=== PATIENT | female | born 1950 | race Caucasian/White ===

== ENCOUNTER → 2018-12-14 06:29 | Outpatient (CLI) | payer MEDICARE, SELFPAY ==
--- NOTE | 2018-12-14 | DI.MRI.S_ITS ---
PROCEDURE: MR SHOULDER LT WO CON INDICATIONS: OSTEOARTHRITIS OF LEFT SHOULDER TECHNIQUE: Noncontrast oblique coronal T2 fast spin echo with fat saturation, oblique sagittal T1 spin echo and T2 fast spin echo with fat saturation, axial T1 spin echo and T2 fast spin echo with fat saturation through the shoulder. COMPARISON: None. FINDINGS: Image quality: Excellent. Rotator cuff: Supraspinatus tendinopathy with partial-thickness bursal and articular sided tear. Infraspinatus tendinopathy also noted, with low-grade bursal and articular surface fraying. Teres minor intact. Subscapularis tendinopathy and thickening, with partial-thickness articular and bursal sided tear. Overall, no definite full-thickness defect is seen. Atrophy of the supraspinatus, infraspinatus and subscapularis muscle. Bones and bursae: No bone marrow contusions or fractures. There is severe glenohumeral and moderate acromioclavicular joint degeneration. The acromion demonstrates conventional anatomy, without an os acromiale. Large joint effusion. Sub-5 mm foci of presumed debris, small intra-articular loose bodies and/or reactive synovitis Capsule and soft tissues: Ill-defined circumferential macerated appearance of the labrum with marked blunting and diminutive appearance, likely chronic in nature. The long head of the biceps tendon demonstrates normal location and morphology. The rotator interval appears normal, without fibrosis. The coracohumeral ligament is normal in thickness. IMPRESSION: Supraspinatus, subscapularis and infraspinatus tendinopathy with partial-thickness bursal and articular sided tear. No definite full-thickness defect is seen. Respective muscle atrophy as above. Severe degenerative joint disease, with deformity and bulky osteophyte formation. Large joint effusion. Scattered multiple sub-5 mm foci of debris, intra-articular loose bodies and/or reactive synovitis Circumferential labral degeneration Dictated by: Blake Lundy M.D. on 12/14/2018 at 8:21 Approved by: Blake Lundy M.D. on 12/14/2018 at 8:30
== END ==
PROVIDERS: PCP Internal Medicine; Visit Provider Internal Medicine
DX: M19.012 Primary osteoarthritis, left shoulder (principal); M75.112 Incomplete rotator cuff tear or rupture of left shoulder, not specified as traumatic; M25.412 Effusion, left shoulder
CPT/HCPCS: 73221

== ENCOUNTER → 2019-04-10 10:56 | Outpatient (CLI) | payer MEDICARE, SELFPAY ==
--- NOTE | 2019-04-10 11:01 | DI.CT.S_ITS ---
PROCEDURE: CT UE LT WO CON INDICATIONS: Left SHOULDER PAIN TECHNIQUE: Noncontrast 1-1.5 mm thick sections acquired from the acromioclavicular joint to the inferior scapula, with coronal and sagittal reformatting. COMPARISON: None. FINDINGS: Image quality: Excellent. Bones: Severe glenohumeral joint osteoarthritic changes are seen with near complete loss of joint space, extensive subchondral sclerosis and cyst formation. A prominent marginal osteophyte formation is also seen. There is mild to moderate acromioclavicular joint osteoarthritis. No fracture or dislocation. No suspicious bony lesion. Soft tissues: Small linear calcifications are noted near greater tuberosity of humeral head which may represent calcific tendinitis involving distal rotator cuff tendons. No gross full-thickness rotator cuff tendon rupture. No significant rotator cuff muscle atrophy is seen. Small joint effusion is seen. No gross intra-articular loose body. IMPRESSION: 1. Severe glenohumeral joint osteoarthritis and mild to moderate acromioclavicular joint osteoarthritis. No acute fracture or dislocation. No suspicious intraosseous lesion. 2. Small joint effusion. Suggestion of calcific tendinitis involving distal rotator cuff tendons. No gross full-thickness rotator cuff tendon rupture. No calcified intra-articular loose body. Dictated by: Lex Cook M.D. on 04/10/2019 at 11:42 Approved by: Lex Cook M.D. on 04/10/2019 at 11:47
== END ==
PROVIDERS: PCP Internal Medicine; Visit Provider Orthopaedic Surgery
DX: M25.512 Pain in left shoulder (principal); M19.012 Primary osteoarthritis, left shoulder; M25.412 Effusion, left shoulder
CPT/HCPCS: 73200

== ENCOUNTER → 2019-05-20 09:18 | Outpatient (CLI) | payer MEDICARE, SELFPAY ==
[2019-05-20 09:33] LABS: RBC Urine None Seen (0-5/HPF)
[2019-05-20 10:13] LABS: Add Manual Diff / Slide Review NO; Basophils Absolute Auto 0 /uL (0-100); Basophils Percent Auto 0.7 % (0-2); Eosinophils Absolute Auto 100 /uL (0-450); Eosinophils Percent Auto 1.4 % (2-4); Hematocrit 38.5 % (36-46); Lymphocytes Absolute Auto 1700 /uL (1100-4500); Lymphocytes Percent Auto 32.1 % (25-40); Mean Corpuscular HGB Conc 33.9 % (30-36); Mean Corpuscular Hemoglobin 31.3 PG (26-34); Mean Corpuscular Volume 92.4 fL (80-100); Monocytes Absolute Auto 500 /uL (0-900); Monocytes Percent Auto 9.8 % (3-14); Neutrophils Absolute Auto 2900 /uL (1500-7000); Platelet Count 291 X10^3/uL (150-400); Red Blood Cell Count 4.16 X10^6/uL (4.0-5.2); Red Cell Distribution Width 15.4 % (11.6-14.8); White Blood Cell Count 5.2 X10^3/uL (4.5-11.0)
[2019-05-20 10:23] LABS: Hemoglobin A1C% w Est Avg Glu 5.1 % (4.0-6.0)
[2019-05-20 10:24] LABS: Blood Urea Nitrogen 9 mg/dL (7-17); Calcium 9.2 mg/dL (8.4-10.2); Carbon Dioxide 27 mmol/L (22-32); Chloride 100 mmol/L (98-107); Estimated Glomerular Filt Rate > 60.0 mL/min (>60); Glucose 98 mg/dL (80-110); HEMOLYSIS < 15 (0-50); Potassium 4.6 mmol/L (3.4-5.1); Sodium 133 mmol/L (137-145)
[2019-05-20 10:29] LABS: Transferrin 298 mg/dL (206-381)
[2019-05-20 12:04] LABS: Appearance Urine UA CLEAR; Bilirubin Urine UA NEGATIVE (NEGATIVE); Color Urine UA YELLOW; Glucose Urine UA NEGATIVE (Negative); Ketones Urine UA NEGATIVE (NEGATIVE); Leukocyte Esterase Urine UA NEGATIVE (NEGATIVE); Nitrite Urine UA NEGATIVE (Negative); Occult Blood Urine UA NEGATIVE (Negative); Protein Urine UA NEGATIVE (Negative); Specific Gravity Urine UA <=1.005 (1.000-1.035); Urobilinogen Urine UA 0.2 E.U./dL (0.2)
[2019-05-20 12:36] LABS: Bacteria Urine Occasional (0-1); Culture Indicated Urine Cult Not Indicated; Squamous Epithelial Cell Urine 5-10 /HPF (0-5/HPF); WBC Urine 0-1/HPF (0-5/HPF)
== END ==
PROVIDERS: PCP Internal Medicine; Visit Provider Orthopaedic Surgery
DX: Z01.818 Encounter for other preprocedural examination (principal); Z01.812 Encounter for preprocedural laboratory examination; R73.9 Hyperglycemia, unspecified; N39.0 Urinary tract infection, site not specified; D64.9 Anemia, unspecified
CPT/HCPCS: 36415; 80048; 81001; 83036; 84466; 85025; 93005; 93010

== ENCOUNTER 2019-06-03 06:08 | Inpatient (IN) | payer MEDICARE, SELFPAY ==
[2019-05-22 09:51] VITALS: BMI 20.3
[2019-06-03] VITALS (12 sets, daily range): BP systolic 96–130; BP diastolic 59–80; PULSE 59–84; RESP 12–16; TEMP 36.2–36.7; O2SAT 88–99; BMI 19.8
--- NOTE | 2019-06-03 06:00 | DI.RAD.S_ITS ---
PROCEDURE: XR SHOULDER LT 1V INDICATIONS: post op TECHNIQUE: Single views of the shoulder were acquired. COMPARISON: None. FINDINGS: Status post left shoulder arthroplasty. Expected postsurgical soft tissue changes and drain noted. There is expected postoperative alignment. IMPRESSION: Expected postoperative appearance Dictated by: Blake Lundy M.D. on 06/03/2019 at 10:32 Approved by: Blake Lundy M.D. on 06/03/2019 at 10:33
[2019-06-03] MEDS: ACETAMINOPHEN 325 MG TABLET 975 MG PO ×3 (07:16→20:03)
[2019-06-03] MEDS: PREGABALIN 75 MG CAPSULE PO (07:16)
[2019-06-03] MEDS: CELECOXIB 200 MG CAPSULE PO (07:17)
[2019-06-03] MEDS: LACTATED RINGERS 1,000 ML 42 ML IV ×2 (07:27→09:34)
[2019-06-03] MEDS: fentaNYL 100 MCG/2 ML INJ 50 MCG IV (07:43)
[2019-06-03] MEDS: MIDAZOLAM 2 MG/2 ML VIAL IV (07:44)
--- NOTE | 2019-06-03 07:48 | P.OP_ITS ---
Operative Date/Time/Diagnoses Date of procedure: 06/03/19 Time of procedure: 09:40 Pre-op diagnosis: Left shoulder osteoarthritis Post-op diagnosis: same Procedure & Clinicians Procedure: Left total shoulder replacement Same procedure as scheduled: Yes Indications: The patient has had progressively worsening left shoulder pain with radiographic changes consistent with arthritis. Non-operative management has failed and the patient has requested total shoulder replacement. The risks, benefits and alternatives to surgery were discussed with the patient prior to proceeding. Risks discussed included, but were not limited to, failure to relieve pain, stiffness, infection, nerve damage, deep venous thrombosis, pulmonary embolism, stroke, coma, heart attack, permanent paralysis and , as well as the potential need for eventual revision of the prosthetic. Surgeon: Lauri Venegas Back Shoe Operator: Pranav Stewart Click Yes if Unassisted: No Anesthesia Type: General, Peripheral nerve block and Local Operative Notes Findings: Severe osteoarthritis with posteriorly eroded glenoid and osteoporotic bone in the proximal humerus. Closure Type: primary Specimen(s): none sent Prosthetic devices, grafts, tissues, transplants, or devices: Implants used in this procedure were manufactured by the [employer] and included an Altivate short stem total shoulder system with a size 46 all polyethylene E plus pegged glenoid, a 14 mm humeral stem, a neutral neck and a 46 mm x 24 mm offset [place] humeral head. Applied: drain(s) and implant(s) Estimated Blood Loss (mL): 150 Blood products transfused: none Procedure in detail: The patient was seen in the pre-operative area, where the patient identified the left shoulder as the operative site and this was marked with my initials. The patient received pre-operative antibiotics, underwent an interscalene block, and was taken to the operating room and placed on the operative table in the supine position. After satisfactory anesthesia, a full ?time out? was performed. The patient was repositioned in the ?beach chair? position using a dedicated positioner. All pressure points were well padded, and the knees were slightly bent to prevent tension on the sciatic nerves. The left arm was prepared from the fingers to the base of the neck with ChloroPrep in the usual fashion and draped through sterile drapes. An approximately 15 cm incision was created, starting at the clavicle above the coracoid process and extended towards the deltoid insertion. The deltopectoral interval was used to access the shoulder. The cephalic vein was taken medially. A self retaining retractor was placed. The upper centimeter of the pectoralis major tendon was released. The ?three sisters? were identified and cauterized. The axillary nerve was palpated and protected throughout the case. The biceps was released from its groove and tenodesed over the top of the pectoralis major tendon. The subscapularis was released from the lesser tuberosity with a subscapularis peel and tagged for later repair. The shoulder was dislocated and a cutting guide was used for the proximal humeral osteotomy in 30 degrees of retroversion. A starter Reamer was used followed by the cylindrical reamers. This continued in larger sizes in till cortical bite was achieved. Sequential broaching was then performed until a line to line fit with the Reamer occurred. A proximal humeral protector was then placed. We then removed the self-retaining retractor and placed retractors to access the glenoid. The subscapularis was released with a ?360 degree release? with care being taken to protect the axillary nerve with the inferior portion of this procedure. The remnant of labrum and biceps stump were removed. The custom [employer] glenoid guide was used and the guide pin placed. The glenoid was appropriately reamed. The guide for the peripheral holes was used and the center hole enlarged. The trial glenoid was placed with good stability. We then cemented the final implant into place after irrigating the peg holes and drying them with thrombin-soaked Gelfoam. We returned our attention to the humerus, a trial humeral head was applied and a trial reduction performed. Stability was checked with 50% posterior translation with spontaneous reduction, external rotation at the side to 45? with the subscapularis held in the repaired position and internal rotation to 70? in the ?scarecrow position?. This was felt to be satisfactory and the appropriate implants were opened. Five holes were drilled along the humeral osteotomy and #2 Ethibond sutures placed for eventual subscapularis repair. The humeral prosthetic was impacted into the humerus. The humeral head was applied when the stem was still slightly proud and impacted to both seat the head and fully seat the stem. The joint was relocated one final time. The joint was irrigated and the subscapularis repaired to the previously placed sutures using Alf-Ruel sutures. The top of the subscapularis was closed to the leading edge of the supraspinatus with a figure of 8 #2 Ethibond to close the rotator interval. A deep drain was placed and brought out supero-laterally. The deltopectoral interval was closed with interrupted 0 Vicryl. The subcutaneous layer was closed with 3-0 Vicryl, and the skin with a running 3-0 V-Lock suture and SteriStrips. An Aquacel Ag dressing was applied, the patient?s arm was placed in a sling, and the patient was taken to recovery having tolerated the procedure well. Complications: none Post-operative Condition: stable Disposition: PACU Plan for aftercare: The patient will be maintained on a standard total shoulder replacement protocol with passive range of motion limited to 90 degrees forward flexion, 0 degrees external rotation at the side, 0 degrees abduction and internal rotation to the body. The patient will receive aspirin and sequential compression devices for DVT prophylaxis. The patient will be discharged home when safe for the home environment, likely tomorrow.
--- NOTE | 2019-06-03 07:48 | PM.PREOP ---
Pre-operative Note Interval Note History & Physical reviewed/Exam performed by Physician: Yes Changes to H&P: No
[2019-06-03] MEDS: CEFAZOLIN 2 GM/100 ML FROZ.PIGGY IV (07:49)
--- NOTE | 2019-06-03 07:51 | SUR.PREOP ---
Block start time [0742] . Monitoring initiated and maintained throughout procedure. Oxygen and medications given per anesthesiologist instructions. Patient remained stable throughout procedure, no adverse reactions noted. Block end time [0748].
[2019-06-03] MEDS: TRANEXAMIC ACID 1,000 MG VIAL 1000 MG INJ ×2 (08:10→09:34)
--- NOTE | 2019-06-03 08:25 | SUR.OPER ---
Beach chair with Schlein shoulder positioner. Lower body on padded OR bed. Head in foam padded head cradle, secured with straps. Non-operative arm secured <90 degrees abduction. Pillow under knees. Safety belt at thigh. Cloth tape over blanket over lower legs.
[2019-06-03] MEDS: BUPIVACAINE 0.5% W/ EPI (PF) 30 ML VIAL INJ (08:29)
[2019-06-03] MEDS: THROMBIN (RECOMBINANT) 5,000 UNIT VIAL 5000 UNIT TOP (08:30)
[2019-06-03] MEDS: LACTATED RINGERS 1,000 ML 125 ML IV ×2 (11:03→18:58)
--- NOTE | 2019-06-03 13:48 | PT.IIE ---
Current Diagnoses Primary osteoarthritis, left shoulder (06/03/19) Surgery Performed Operation Date: 06/03/19 07:45 Actual Procedures p Total Shoulder Arthroplasty(Left) - Lauri Venegas MD Surgical History (Last Updated 05/22/19 @ 10:26 by Christy Ramos RN) H/O: hysterectomy (Acute ~1976) History of colonoscopy (Acute ~2008) History of lumpectomy of left breast (Acute ~1989) Hx of augmentation mammoplasty (Acute ~2008) Hx of LASIK (Acute) Hx of toe surgery (Acute) Hx of tonsillectomy (Acute) Status post Mohs surgery (Acute) Medical History (Last Updated 05/22/19 @ 10:26 by Christy Ramos RN) Breast cancer, left (Acute ~1989) Easy bruisability (Acute) Headache, migraine (Acute) Osteoarthritis (Acute) Osteopenia (Acute) Physical Therapy Inpatient Evaluation/Re-Eval M1 PT/OT-IP Prior Functional Status Start: 06/03/19 08:35 Freq: NEEDED Status: Active Protocol: Document 06/03/19 13:19 AW (Rec: 06/03/19 13:48 AW [id number]) Medical Review Prior Functional Status Medical History Reviewed Yes Diet/Fluid Consistency Regular Communication WNL Mobility and Gait Independent without assistive device Activities of Daily Living and IADL's Independent Prior Functional Level (Other details) Pt denies falls in the past two years Social History Household Members spouse Living Arrangements House Number of Floors (Floors) Two Floors Number of Stairs To Enter/Railing? Level entrance through garage. 12 + 12 steps to second floor with left railing first set and right railing second set. Home Environment Standard Height Toilet,Walk in Shower,Tub/Shower Home Equipment Straight Cane,Shower Seat without Backrest,Hand Held Shower Employment Status Retired Additional Social History Comment Ronaldo lives with her spouse. Both are retired and her spouse is able/available to assist as needed. M2 PT-IP Current Condition Start: 06/03/19 08:35 Freq: NEEDED Status: Active Protocol: Document 06/03/19 13:19 AW (Rec: 06/03/19 13:48 AW [id number]) Physical Therapy Current Condition Current Condition Evaluation Date 06/03/19 Treatment Diagnosis L TSA, impaired mobility and ADL's Onset Date 06/03/19 Precautions Shoulder Precautions Sling,PROM,Internal Rotation to Body,No External Rotation, No Abduction,Forward Flexion to 90 degrees,Pendulums Brace sling on left UE at all times Weight Bearing Status Weight Bearing Status Full Weight Bearing M3 PT-IP Subjective Start: 06/03/19 08:35 Freq: NEEDED Status: Active Protocol: Document 06/03/19 13:19 AW (Rec: 06/03/19 13:48 AW [id number]) Subjective Physical Therapy Visit Type Type Initial Evaluation Visit Start Time 12:45 Visit Stop Time 13:17 Total Visit Minutes 32 Number of FLOOR HELPER Visits 0 Physical Therapy Visit Comments Patient Comments Pt is moving her hand but remains unable to feel anything. Willing to work with therapy. Patient Goals To go home with spouse support Therapy Pain Assessment Pain When Pain Assessed During Mobility Pain Present Pain Present Denied Pain M4 PT-IP Mobility and Gait Start: 06/03/19 08:35 Freq: NEEDED Status: Active Protocol: Document 06/03/19 13:19 AW (Rec: 06/03/19 13:48 AW [id number]) PT-Bed Mobility Assessment Supine to Sit Supine to Sit Standby Assistance Sit to Supine Sit to Supine Standby Assistance Scooting Scooting to Edge of Bed Independent PT-Transfer Assessment Sit to and From Stand Sit to and from Stand Standby Assistance Equipment Transfer Assistive Device Gait Belt Orthotic/Prosthetic Devices or Brace: Yes Transfers Transfer Destination Bed Transfer Technique pt ambulated without device Transfer Ability Level of Assist Standby Assistance Comments Mobility Comments Pt completed bed mobility with HOB elevated 45 degrees SBA. She required no more than SBA for all mobility and demonstrated good awareness of her shoulder precautions. Gait Assessment Gait Gait Assistance Required: Standby Assistance Distance (Feet) 30 Able to Maintain Weight Bearing Status Yes During Gait Assistive Devices Assistive Device Gait Belt Orthotic/Prosthetic Devices or Brace: Yes Gait Deviations General Gait Pattern Decreased Stride Length,Wide Based Gait Factors Limiting Gait Function Factors Limiting Gait Function Decreased Activity Tolerance, Poor Balance Comments Gait Comments Pt ambulated on level surface in the room without complaint of lightheadedness or nausea. BP at rest was 114/71 and after ambulation was 114/68. She did have positive loss of balance posteriorly and laterally but was able to recover without therapist assist. She stated I can tell I feel just a little bit off from anesthesia. Pt was repositioned in bed and educated to use the call light for all mobility needs. Stair Climbing Assessment Comments Stair Climbing Comments Not assessed PT-Balance Assessment Sitting Balance and Reactions Static Sitting Balance Ability Normal Dynamic Sitting Balance Ability Normal Standing Balance and Reactions Static Standing Balance Ability Good Dynamic Standing Balance Ability Good Device Used no AD M5 PT-IP Objective Assessments Start: 06/03/19 08:35 Freq: NEEDED Status: Active Protocol: Document 06/03/19 13:19 AW (Rec: 06/03/19 13:48 AW [id number]) Orientation Orientation/Cognition Level of Alertness Alert Orientation Name,Day of Week,Place, Situation Language Function Ability No Deficits Noted Safety Awareness Understands Safety Issues Memory Description No Deficits Noted Gross Range of Motion Upper Extremity ROM Assessment Left Impaired Lower Extremity ROM Assessment Within Functional Limits Strength Upper Extremity Strength Assessment Left Impaired Lower Extremity Strength Assessment Within Functional Limits Coordination Assessment Gross Coordination Gross Coordination WNL Sensation Assessment Sensation Gross Sensation Left UE Impaired Light Touch Absent Comments Sensation Comments Pt still recovering from anesthesia M6 PT-IP Treatment Start: 06/03/19 08:35 Freq: NEEDED Status: Active Protocol: Document 06/03/19 13:19 AW (Rec: 06/03/19 13:48 AW [id number]) Physical Therapy Treatment Education Education Provided Precautions,Post-Op Packet, Safety Brace Education Donning,[place],Patient Other Treatments Other Treatment Performed Educated pt on PT plan of care , use of sling at all times, donning and doffing the sling (with mirror for visual feedback), movement precautions, pendulums, and ADL's. Left handout with patient describing same. M7 PT-IP Assessment and Plan Start: 06/03/19 08:35 Freq: NEEDED Status: Active Protocol: Document 06/03/19 13:19 AW (Rec: 06/03/19 13:48 AW [id number]) PT Summary Assessment and Plan Potential Rehabilitation Potential Excellent Status of Condition at Evaluation Evolving Summary Impairments Pain,ROM,Strength,Balance,Gait Assessment Summary Ronaldo is a left-handed 69 yo woman seen for PT evaluation on POD0 following left TSA. At baseline, she was independent in all regards. Upon evaluation, she required SBA for most mobility with noted balance deficits likely due to effects of anesthesia. She will benefit from one more acute PT session to review sling management, ADL's, range of motion, and to assess stairs. She would benefit from having her spouse present for caregiver training as he will be assisting her at home. PT recommends discharge to home with assist and outpatient PT when medically cleared. Goals Bed Mobility Goal Independent Transfer Goal Independent Gait Goal Independent Gait Distance 150 Other Goals - up/down 12 steps without hand rail and another 12 steps with right hand rail Days to Meet Goals 1 Frequency of Treatment Frequency Of Treatment Twice a Day Treatment Plan Physical Therapy Treatment Plan Bed Mobility Training,Transfer Training,Gait Training, Therapeutic Exercise,Balance Retraining,Post Op Education, Discharge Planning,Hot or Cold Pack Other Recommendations and Next Treatment stairs, caregiver training Focus Recommendations To Nursing Amount of Assist Needed Standby Assistance Discharge Recommendations PT Discharge Recommendations Home with Assistance, Outpatient PT
--- NOTE | 2019-06-03 15:30 | CM.DANOTE ---
DCP Assessment: EMR reviewed: Patient is a 72 yr old female who was admitted for Lt TSA preformed by dr roldan. Patients PCP is Dr. Todd. CM/RN met with patient at the bedside and explained CM role. Patient was alert and oriented x3 at time of meeting. Patient is I at [place] with all her ADL's and drives. Patient has 1st post op appointment scheduled for 06/17/2019 and has OP PT set up with [facility]. Patients has taken the next 3 weeks off of work to be able to help patient with her recovery. PT evaluation recommends patient to go home with assistance and OP PT. I: 1st medicare 2nd self pay Plan: D/C home with when medically stable with [facility] PT [facility]. No identified D/C planning needs noted at this time. CM department will follow to assist with any D/C planning needs that might arise prior to D/C. Sari Bailon RN Discharge Planning/Care Management Advanced directive, confirm from FAMILY Start: 06/03/19 11:19 Freq: Q24H Status: Active Protocol: Document 06/03/19 11:19 YAD (Rec: 06/03/19 11:20 YAD [id number]) Advance Directive, confirm on record Time 11:20 Person contacted patient Copy received No CM Discharge Assessment Start: 06/03/19 15:28 Freq: Status: Active Protocol: Document 06/03/19 15:28 HS (Rec: 06/03/19 15:30 HS [id number]) Discharge Planning Assessment Assigned Preschool Assistant Director Sari Bailon RN DPOA/Assigned Designee Name Dashawn Oglesby () Contact Information [phone] Advance Directives? Yes: Unknown where copy is Advance Directives on File No History Provided By Patient Has Patient been admitted in last 30 No days? Prior Living Arrangements House Household Members spouse Type of transporation used prior to Drives own vehicle admit Independent with ADL's Yes Is patient alert and oriented? Yes Caregiver for Another No Patient/Family Preference OP PT Therapy Comment OP PT set up with [facility] Discharge Plan Home Referrals Initiated None needed Whiteboard Updated in Patient Room with Yes name and ext. # of Preschool Assistant Director Review Status In Process Next Review Type Continued Stay Review Pre-Anesthesia Assessment Start: 05/22/19 09:51 Freq: Status: Active Protocol: Document 05/22/19 09:51 CAB (Rec: 05/22/19 10:28 CAB [id number]) Pre-Anesthesia Assessment PAC Comment Dashawn () very [place] Patient Information Reviewed Via Phone Assessment Assessment Completed With Patient Diagnostic Results BMP/CMP,CBC,EKG,Urinalysis Comment Labs/EKG @ 05/20/19 Primary Care Provider Law Todd Seen Specialist in Last 12 Months Yes Specialist Seen Pleater,Orthopedist Comment PCP-last visit 11/30/18 scanned to record Primary Language [place] Height 175.26 cm Weight 62.596 kg Body Mass Index (BMI) 20.3 Hearing Ability Normal Visual Assist Glasses Dentition Type Teeth, Natural Present Barriers to Learning None Other Aids No Hx Anesthesia Reactions No Hx Family Anesthesia Reaction No Hx Malignant Hyperthermia No Hx Blood Transfusions No Anesthesia Review Requested No alcohol intake current alcohol intake frequency 0-2 drinks per day Smoking Status Former smoker how long ago did patient quit smoking Quit in her 20's Substance Use Type marijuana Comment Pt advised not to smoke marijuana 24 hours prior Pain Present Pain Reported Musculoskeletal Symptoms Joint Pain,Joint Stiffness, Limited Range of Motion,Neck Pain History of Falling (Recent or History of No ) Patient is completely paralyzed or No completely immobile Mental Status Oriented to own ability Is patient on oxygen? No Does patient have MCCAULEY/SOB No Hx Sleep Apnea No Currently Taking a Beta Luan No Can You Climb a Flight of Stairs Without Yes SOB Hx Chest Pain No Hx SOB No Hx Syncope or Dizziness No Anti-Coagulant Therapy No Has a Broom Stitcher No Cardiac Testing No Hx Pacemaker/ICD No Pacemaker Rep Required? No Cardiac Clearance Received Not Applicable Diet Type At Home Regular dysphagia No Urinary Catheter Present No Hx Urinary Self Catheterization No Diabetes No Patient No Lactating No Hx Drug Resistant Organism No Presence of External or Internal Medical Yes: Breast implants Devices Have you traveled outside the [facility] in the last 30 days? Comment [place] travel 05/10/19-05/18/19 Marital Status Lives With spouse Prior Living Arrangements House Number of Floors (Floors) Two Floors Support System Spouse Does the Patient Have Assistance After Yes Surgery Patient Discharge Plan Description Return Home Comment Pt advised 1 night length of stay per surgeon Feels Safe in Current Environment Yes Been Physically Hurt or Threatened By a No Person in Current Environment Do you have thoughts of harming yourself None or others? Are you currently considering suicide? No Do you have a plan to hurt yourself or No Plan others? Do You Have Any Spiritual Beliefs That No May Affect Your HC Choices? Do You Have Any Cultural Practices That No May Affect Your HC Choices? Who Can We Speak to About Patient's Care Family, friends Identifying Code for Release of Patient Declines to issue Information Health Care Proxy/Next of Kin Dashawn () very [place] Health Care Proxy Emergency Contact Name Dashawn () very [place] Emergency Contact Advance Directives? Yes: Unknown where copy is Advance Directives on File No Requested Patient Bring Advanced Yes Directives DOS Power of Flexo Press Operator No PAC Instructions Medications to take/avoid, Nasal antibiotic,No ETOH/ petroleum product on skin DOS, NPO,Post-op transportation,Pre -surgical wash,Sturdy shoes/ comfortable clothes,Do not bring valuables and remove jewelry
[2019-06-03] MEDS: ASPIRIN EC 81 MG TABLET PO (20:04)
[2019-06-03] MEDS: DOCUSATE 100 MG CAPSULE PO (20:04)
--- NOTE | 2019-06-03 20:25 | PC.NURSE ---
Pt continues to have total numbness and inability to move L UE. Dr. Loza advised. Pt had a block. Cap refill < 3 seconds.
[2019-06-04] MEDS: OXYCODONE IR 5 MG TABLET PO ×2 (00:24→03:09)
[2019-06-04 01:10] VITALS: BP 129/80; PULSE 57; RESP 16; TEMP 36.8; O2SAT 97
[2019-06-04 03:38] VITALS: BP 110/80; PULSE 71; RESP 16; TEMP 37.2; O2SAT 100
[2019-06-04 05:32] LABS: Hematocrit 32.8 % (36-46)
--- NOTE | 2019-06-04 06:39 | PM.DS.1 ---
History of Present Illness History of Present Illness Date Patient Seen: 06/04/19 Time Patient Seen: 06:39 Chief complaint: [id number] Left Total Shoulder Arthroplasty Narrative: The history and physical are contained in a previously completed note in the chart. Please refer to that note for this information. Discharge Providers Provider Date of admission: 06/03/19 06:08 Discharge Date: 06/04/19 Primary care physician: Law Todd MD Consults: 06/03/19 10:49 Consult to Discharge Planning Routine Comment: Consult to Physical Therapy Evaluate & Treat Comment: PROM, pendulums, 90 FF, 0 ABD, 0 ER IR to body. Physician Instructions: Evaluate and Treat Discharge provider: Lauri Venegas MD Summary Hospital Course Discharge Diagnosis: 1. Left shoulder osteoarthritis 2. Post hemorrhagic anemia Hospital Course: The patient was admitted to the hospital and taken directly to the operating room on June 03, 2019 where she underwent a left total shoulder replacement without complications. She was stable overnight and appears to be ready for discharge postoperative day 1. Status at Discharge Cognitive/behavioral status at discharge: oriented Functional status at discharge: independent ambulation Overall status at discharge: patient is progressing back to baseline Time Spent with Patient Time spent: Less than 30 minutes Exam Vital Signs (past 8 hours): - 06/04/19 01:10 06/04/19 03:38 Temperature 98.3 F 98.9 F Pulse Rate 57 L 71 Respiratory Rate 16 16 Blood Pressure 129/80 110/80 Pulse Oximetry 97 100 Oxygen Delivery Method Nasal Cannula Oxygen Flow Rate 0 Narrative Exam Narrative: Left shoulder wound is dressed with no drainage on the bandage. Light touch is intact in the radial, ulnar, median, muscular cutaneous and axillary nerve distribution. She can extend her thumb, abduct her thumb and abduct her fingers. Objective Labs Result Diagrams: 06/04/19 05:15 Labs: Laboratory Results - last 24 hr 06/04/19 05:15 Hgb 11.0 L Hct 32.8 L Discharge Plan Discharge Plan Patient Disposition: Home Discharge orders & Medications Prescriptions: New acetaminophen 325 mg Tablet 975 mg PO TID 30 Days Qty: 270 RF: 0 aspirin 81 mg Tablet,Delayed Release (Dr/Ec) 81 mg PO BID 42 Days Qty: 84 RF: 0 oxycodone 5 mg Tablet 5 mg PO Q4HR Qty: 40 RF: 0 ibuprofen 600 mg Tablet 600 mg PO Q6HR PRN (Reason: As Needed For Fever/Mild Pain) 30 Days Qty: 90 RF: 0 Continued Premarin 0.3 mg Tablet 0.325 mg PO DAILY RF: 0 Follow up/Referrals: Law Todd MD [Primary Care Provider] - Lauri Venegas MD [Physician] - 2 Weeks Discharge Health Status Multidrug resistant organism: No MDRO Diet/Activity/Treatments Diet: Diet as Tolerated and Regular Activity: You may use your left arm in front of her body below shoulder level. You may do pendulum exercises. Keep the sling on except for the exercises and for hygiene. Cold/Heat Therapy: Apply ice to the left shoulder for 15 minutes every hour as needed for pain control. Skin/Wound/Dressing Care Report to your healthcare provider any signs of infection, such as:: chills, fever, night sweats, increased pain, unusual drainage and unusual redness Dressing: You may shower with the dressing in place. Leave the dressing intact until your postoperative follow-up. If the center strip of the dressing becomes saturated with either water or blood please call the office to have it changed. Visit Report/Discharge Packet Instructions: DI for Prescription Opioid Use, DI for Shoulder Replacement Stand Alone Forms: Surgery Discharge Discharge Data Primary Care Provider: Law Todd V Quality VTE Deep Vein Thrombosis/Pulmonary Embolism Present on Admission: No
[2019-06-04] MEDS: OXYCODONE IR 10 MG TABLET PO ×2 (06:56→09:54)
[2019-06-04 08:00] VITALS: BP 91/61; PULSE 66; RESP 16; TEMP 37.2; O2SAT 95
[2019-06-04] MEDS: DOCUSATE 100 MG CAPSULE PO (08:09)
[2019-06-04] MEDS: ACETAMINOPHEN 325 MG TABLET 975 MG PO (08:09)
[2019-06-04] MEDS: ASPIRIN EC 81 MG TABLET PO (08:09)
[2019-06-04] MEDS: IBUPROFEN 600 MG TABLET PO (08:09)
--- NOTE | 2019-06-04 08:48 | PT.IPTN ---
Current Diagnoses Primary osteoarthritis, left shoulder (06/03/19) Surgery Performed Operation Date: 06/03/19 07:45 Actual Procedures p Total Shoulder Arthroplasty(Left) - Lauri Venegas MD Physical Therapy Treatment Note M2 PT-IP Current Condition Start: 06/03/19 08:35 Freq: NEEDED Status: Active Protocol: Document 06/03/19 13:19 AW (Rec: 06/03/19 13:48 AW [id number]) Physical Therapy Current Condition Current Condition Evaluation Date 06/03/19 Treatment Diagnosis L TSA, impaired mobility and ADL's Onset Date 06/03/19 Precautions Shoulder Precautions Sling,PROM,Internal Rotation to Body,No External Rotation, No Abduction,Forward Flexion to 90 degrees,Pendulums Brace sling on left UE at all times Weight Bearing Status Weight Bearing Status Full Weight Bearing M3 PT-IP Subjective Start: 06/03/19 08:35 Freq: NEEDED Status: Active Protocol: Document 06/04/19 09:07 CLB (Rec: 06/04/19 09:22 CLB [id number]) Subjective Physical Therapy Visit Type Type Treatment Note Visit Start Time 08:48 Visit Stop Time 09:05 Total Visit Minutes 17 Number of ANESTHESIOLOGY CRNA Visits 1 Physical Therapy Visit Comments Patient Comments Pt up in room independently upon arrival. Pt agreeable to work with therapy. Patient Goals To go home with spouse support Therapy Pain Assessment Pain When Pain Assessed During Mobility Pain Present Pain Present Pain Reported Location Left Shoulder Intensity 3 Scale Used Numeric (1 - 10) Description Dull Pain Management Techniques Modification of Treatment, Timing of Activity with Medications M4 PT-IP Mobility and Gait Start: 06/03/19 08:35 Freq: NEEDED Status: Active Protocol: Document 06/04/19 09:07 CLB (Rec: 06/04/19 09:22 CLB [id number]) PT-Transfer Assessment Sit to and From Stand Sit to and from Stand Standby Assistance Equipment Transfer Assistive Device Gait Belt Orthotic/Prosthetic Devices or Brace: Yes Transfers Transfer Destination Bed Transfer Ability Level of Assist Standby Assistance Comments Mobility Comments Pt up ambulating in room independently upon arrival. Pt able to marely pants with Min A to get pants over left hip. Pt is SBA for sit-stand and transfers. Pt left on EOB with call light within reach, CASE REVIEWER informed. Gait Assessment Gait Gait Assistance Required: Standby Assistance Distance (Feet) 220 Able to Maintain Weight Bearing Status Yes During Gait Assistive Devices Assistive Device Gait Belt Orthotic/Prosthetic Devices or Brace: Yes Gait Deviations General Gait Pattern Decreased Stride Length,Wide Based Gait Factors Limiting Gait Function Factors Limiting Gait Function Decreased Activity Tolerance, Poor Balance Comments Gait Comments Pt ambulated to stairs then ambulated in rincon ~220ft. Pt ambulated SBA with no LOB. Stair Climbing Assessment Evaluation Level of Assist On Stairs Standby Assistance Devices Stair Climbing Assistive Devices None,Right Railing Technique/Endurance Stair Climbing Direction Ascend and Descend Stair Climbing Technique Step Over Step Number of Steps Climbed 3 Stair Climbing Set # Repetitions (reps) 4 Comments Stair Climbing Comments Pt steady with stair climbing SBA. Pt used right hand rail and wall. M5 PT-IP Objective Assessments Start: 06/03/19 08:35 Freq: NEEDED Status: Active Protocol: Document 06/03/19 13:19 AW (Rec: 06/03/19 13:48 AW [id number]) Orientation Orientation/Cognition Level of Alertness Alert Orientation Name,Day of Week,Place, Situation Language Function Ability No Deficits Noted Safety Awareness Understands Safety Issues Memory Description No Deficits Noted Gross Range of Motion Upper Extremity ROM Assessment Left Impaired Lower Extremity ROM Assessment Within Functional Limits Strength Upper Extremity Strength Assessment Left Impaired Lower Extremity Strength Assessment Within Functional Limits Coordination Assessment Gross Coordination Gross Coordination WNL Sensation Assessment Sensation Gross Sensation Left UE Impaired Light Touch Absent Comments Sensation Comments Pt still recovering from anesthesia M6 PT-IP Treatment Start: 06/03/19 08:35 Freq: NEEDED Status: Active Protocol: Document 06/04/19 09:07 CLB (Rec: 06/04/19 09:22 CLB [id number]) Physical Therapy Treatment Education Education Provided Precautions,Post-Op Packet, Safety Brace Education [place],Patient Other Treatments Other Treatment Performed Went over hand out and assisted pt with sling adjustment. M7 PT-IP Assessment and Plan Start: 06/03/19 08:35 Freq: NEEDED Status: Active Protocol: Document 06/04/19 09:07 CLB (Rec: 06/04/19 09:22 CLB [id number]) PT Summary Assessment and Plan Potential Rehabilitation Potential Excellent Status of Condition at Evaluation Evolving Summary Impairments Pain,ROM,Strength,Balance,Gait Assessment Summary Pt is SBA for sit-stand, transfers, gait and stair climbing. Pt improved with gait having no LOB and ambulated ~220ft. Goals Bed Mobility Goal Independent Transfer Goal Independent Gait Goal Independent Gait Distance 150 Other Goals - up/down 12 steps without hand rail and another 12 steps with right hand rail Days to Meet Goals 1 Treatment Plan Physical Therapy Treatment Plan Bed Mobility Training,Transfer Training,Gait Training, Therapeutic Exercise,Balance Retraining,Post Op Education, Discharge Planning,Hot or Cold Pack Other Recommendations and Next Treatment caregiver training Focus Recommendations To Nursing Amount of Assist Needed Standby Assistance Discharge Recommendations PT Discharge Recommendations Home with Assistance, Outpatient PT
--- NOTE | 2019-06-04 10:10 | PC.NURSE ---
Day shift: Paperwork signed and all questions answered. Pt has MD script and it has been filled. Spouse has the bottle. Aquacel CDI and savi-vac has been removed. Pt has all personal belongings. Taken to private car via WC by this promotion writer. Car driven by spouse.
== END 2019-06-04 10:24 | disposition home or self-care (01) | DRG 483 ==
PROVIDERS: Admitting Provider Orthopaedic Surgery; PCP Internal Medicine; Visit Provider Orthopaedic Surgery
PROC: 0RRK0JZ Replacement of Left Shoulder Joint with Synthetic Substitute, Open Approach (ICD-10-PCS; CPT 23472; principal; 2019-06-03 07:45)
DX: M19.012 Primary osteoarthritis, left shoulder (principal); M81.0 Age-related osteoporosis without current pathological fracture; Z85.3 Personal history of malignant neoplasm of breast
CPT/HCPCS: 36415; 64450; 73020; 85014; 85018; 97116; 97161; 97530; C1776; J0330; J0690; J1100; J2250; J2405; J2704; J3010

== ENCOUNTER → 2019-12-17 19:14 | Outpatient (ROUT) | payer MEDICARE, SELFPAY ==
[2019-06-03 11:08] VITALS: BMI 19.8
[2019-12-17 19:48] LABS: Add Manual Diff / Slide Review NO; Basophils Absolute Auto 0 /uL (0-100); Basophils Percent Auto 0.7 % (0-2); Eosinophils Absolute Auto 100 /uL (0-450); Eosinophils Percent Auto 1.5 % (2-4); Lymphocytes Absolute Auto 2300 /uL (1100-4500); Lymphocytes Percent Auto 35.2 % (25-40); Mean Corpuscular HGB Conc 34.2 % (30-36); Mean Corpuscular Hemoglobin 32.2 PG (26-34); Mean Corpuscular Volume 94.1 fL (80-100); Monocytes Absolute Auto 500 /uL (0-900); Monocytes Percent Auto 7.8 % (3-14); Neutrophils Absolute Auto 3500 /uL (1500-7000); Neutrophils Percent Auto 54.8 % (50-75); Platelet Count 314 X10^3/uL (150-400); Red Blood Cell Count 4.04 X10^6/uL (4.0-5.2); Red Cell Distribution Width 14.4 % (11.6-14.8); White Blood Cell Count 6.4 X10^3/uL (4.5-11.0)
[2019-12-17 19:55] LABS: Alanine Aminotransferase 23 IU/L (<35); Albumin 4.7 g/dL (3.5-5.0); Alkaline Phosphatase 51 U/L (38-126); Aspartate Aminotransferase 37 IU/L (14-36); Bilirubin Total 0.5 mg/dL (0.2-1.3); Blood Urea Nitrogen 8 mg/dL (7-17); Calcium 9.8 mg/dL (8.4-10.2); Carbon Dioxide 27 mmol/L (22-32); Chloride 97 mmol/L (98-107); Cholesterol 258 mg/dL (140-199); Estimated Glomerular Filt Rate > 60.0 mL/min (>60); Globulin 2.4 g/dL (1.7-4.1); Glucose 87 mg/dL (80-110); HDL Cholesterol 104 mg/dL (40-60); HEMOLYSIS < 15 (0-50); LDL Cholesterol Calculated 137 mg/dL (<100); Potassium 4.3 mmol/L (3.4-5.1); Sodium 131 mmol/L (137-145); Total Protein 7.1 g/dL (6.3-8.2); Triglycerides 85 mg/dL (35-150)
[2019-12-17 20:24] LABS: TSH w/ Reflex to FT4 2.51 uIU/mL (0.47-4.68)
== END ==
PROVIDERS: PCP Internal Medicine; Visit Provider Internal Medicine
DX: K59.00 Constipation, unspecified (principal); I71.2 Thoracic aortic aneurysm, without rupture; E78.2 Mixed hyperlipidemia
CPT/HCPCS: 80053; 80061; 84443; 85025

== ENCOUNTER → 2019-12-24 06:46 | Outpatient (CLI) | payer MEDICARE, SELFPAY ==
[2019-06-03 11:08] VITALS: BMI 19.8
--- NOTE | 2019-12-24 07:02 | DI.ECHO.S_ITS ---
Echocardiogram Report + + :Name: TODD GLEASON Study Date: 12/24/2019 Height: 70 in : :[facility] Weight: 139 lb : : Gender: Female BSA: 1.8 m2 : :: 1950 Age: 69 yrs BP: 118/64 mmHg: :Reason For Study: AORTIC ANEURYSM : :Ordering Physician: RUPINDER, : :FIFI Performed By: Paris Hanna : :Referring: FIFI BUCIO : + + Interpretation Summary The ascending aorta is moderately enlarged, measuring 43 mm. The left ventricle is normal in size, wall thickness, and systolic function without any focal wall motion abnormalities. Diastolic parameters suggest probable normal left ventricular diastolic function and normal filling pressures. The right ventricle is normal in size and function. Both atria are normal in size. There is mild to moderate aortic regurgitation. There is no prior echocardiogram noted for this patient. Procedure: A two-dimensional transthoracic echocardiogram with color flow and Doppler was performed. There is no prior echocardiogram noted for this patient. The study quality was technically excellent. The patient was in sinus bradycardia with heart rates between 55-60 bpm during the exam. The patient had occasional PACs during the exam. Left Ventricle: The left ventricle is normal in size, wall thickness, and systolic function without any focal wall motion abnormalities. The ejection fraction is estimated to be 60-65%. Left ventricular global longitudinal strain average is -22.6%. Diastolic parameters suggest probable normal left ventricular diastolic function and normal filling pressures. Right Ventricle: The right ventricle is normal in size and function. Atria: Both atria are normal in size. There is no Doppler evidence for an interatrial shunt. Mitral Valve: The mitral valve is normal in structure and function. There is mild mitral annular calcification. There is mild mitral regurgitation. Aortic Valve: The aortic valve opens well. The aortic valve is trileaflet. There is no aortic valve stenosis. There is mild to moderate aortic regurgitation. Tricuspid Valve: The tricuspid valve is normal in structure and function. The right ventricular systolic pressure is estimated to be at least 24 mmHg based on an estimated right atrial pressure of 3 mm Hg. There is moderate tricuspid regurgitation. Pulmonic Valve: The pulmonic valve is normal in structure and function. There is no pulmonic valvular regurgitation. Great Vessels: The aortic root is normal size. The ascending aorta is moderately enlarged. The IVC is of normal diameter and collapses greater than 50% with a sniff. This suggests a low right atrial pressure of 3 mm Hg. Pericardium/ Pleura There is no pericardial effusion. There is no pleural effusion. MMode/2D Measurements & Calculations LVIDd: 4.4 cm LVOT diam: 2.1 cm LVIDs: 3.3 cm Ao root diam: 3.4 cm FS: 25.1 % asc Aorta Diam: 4.3 cm EPSS: 1.1 cm Ao Arch Diam (Prox Trans): 3.0 cm IVSd: 0.77 cm LVPWd: 0.65 cm LV gutierrez. diameter/BSA (cm/m^2): 2.4 LV sys. diameter/BSA (cm/m^2): 1.8 LA A2 area: 15.4 cm2 RA long axis: 5.0 cm LA A4 area: 13.8 cm2 RA area: 14.8 cm2 LA length (vol): 4.7 cm RA vol: 37.4 ml LA vol: 38.3 ml RA : 20.9 ml/m2 LA vol index: 21.4 ml/m2 IVC diam: 1.6 cm RVD1 (basal): 3.4 cm TAPSE: 2.2 cm Doppler Measurements & Calculations Ao V2 max: 132.4 cm/sec LVOT Max Omer: 87.5 cm/sec Ao V2 mean: 78.3 cm/sec LV V1 max P.1 mmHg Ao max P.0 mmHg LV V1 VTI: 19.4 cm Ao mean P.0 mmHg RUPA(I,D): 2.4 cm2 Ao V2 VTI: 28.6 cm RUPA(V,D): 2.3 cm2 sev ratio: 0.68 RUPA indexed to BSA (cm^2/m^2): 1.3 AI P1/2t: 606.3 msec AI dec slope: 179.1 cm/sec2 MV E max omer: 92.3 cm/sec TR max omer: 253.0 cm/sec MV A max omer: 61.5 cm/sec TR max P.3 mmHg MV E/A: 1.5 PA V2 max: 64.4 cm/sec Med Peak E' Omer: 9.8 cm/sec PA V2 mean: 46.6 cm/sec E/E' med: 9.5 PA mean P.94 mmHg Lat Peak E' Omer: 11.3 cm/sec PA pr(Accel): 7.1 mmHg E/E' lat: 8.2 E/e' average: 8.8 MV dec time: 0.18 sec SV(LVOT): 68.2 ml Electronically signed by: Gerry Mooney M.D. on Reading Physician:12/24/2019 04:42 PM
== END ==
PROVIDERS: PCP Internal Medicine; Referring Provider Internal Medicine; Visit Provider Internal Medicine
DX: I08.3 Combined rheumatic disorders of mitral, aortic and tricuspid valves (principal); I71.2 Thoracic aortic aneurysm, without rupture
CPT/HCPCS: 93306

== ENCOUNTER → 2020-01-23 07:06 | Outpatient (CLI) | payer MEDICARE, SELFPAY ==
[2019-06-03 11:08] VITALS: BMI 19.8
[2020-01-23 08:36] LABS: Alanine Aminotransferase 24 IU/L (<35); Albumin 4.4 g/dL (3.5-5.0); Albumin Globulin Ratio 1.6 (1.0-2.8); Alkaline Phosphatase 51 U/L (38-126); Aspartate Aminotransferase 32 IU/L (14-36); BUN Creatinine Ratio 11.5 (6-22); Bilirubin Total 0.5 mg/dL (0.2-1.3); Blood Urea Nitrogen 6 mg/dL (7-17); Calcium 9.3 mg/dL (8.4-10.2); Carbon Dioxide 31 mmol/L (22-32); Chloride 100 mmol/L (98-107); Estimated Glomerular Filt Rate > 60.0 mL/min (>60); Globulin 2.8 g/dL (1.7-4.1); Glucose 87 mg/dL (80-110); HEMOLYSIS < 15 (0-50); Potassium 4.4 mmol/L (3.4-5.1); Sodium 135 mmol/L (137-145); Total Protein 7.2 g/dL (6.3-8.2)
== END ==
PROVIDERS: PCP Internal Medicine; Referring Provider Internal Medicine; Visit Provider Internal Medicine
DX: E78.2 Mixed hyperlipidemia (principal)
CPT/HCPCS: 36415; 80053

== ENCOUNTER 2020-04-20 09:22 | Emergency (ER) | payer MEDICARE, SELFPAY ==
[2019-06-03 11:08] VITALS: BMI 19.8
[2020-04-20 09:28] VITALS: PULSE 67; O2SAT 98
[2020-04-20 09:29] VITALS: BP 185/83; PULSE 71; O2SAT 98
[2020-04-20 09:30] VITALS: BP 185/83; PULSE 63; PULSE 67; RESP 15; TEMP 36.9; O2SAT 98
--- NOTE | 2020-04-20 09:35 | PC.NURSE ---
no nausea currently. States only the one episode on monday.
--- NOTE | 2020-04-20 09:36 | DI.RAD.S_ITS ---
PROCEDURE: XR CHEST 1V INDICATIONS: chest pain TECHNIQUE: One view of the chest was acquired. COMPARISON: [facility], CR, CHEST 2VW, 10/24/2008, 13:15. [facility] [place], CR, XR SHOULDER 2+ VIEWS LEFT, 07/17/2019, 14:01. FINDINGS: Surgical changes and devices: None. Lungs and pleura: Lungs are clear. There is left apical scarring. No pleural effusions or pneumothorax. Mediastinum: Mediastinal contours appear normal. Heart size is normal. Bones and chest wall: No suspicious bony lesions. Overlying soft tissues appear unremarkable. Note is made of a left shoulder prosthesis. IMPRESSION: No acute cardiopulmonary disease. Dictated by: Deonte Campuzano M.D. on 04/20/2020 at 10:47 Approved by: Deonte Campuzano M.D. on 04/20/2020 at 10:49
[2020-04-20 09:50] LABS: Add Manual Diff / Slide Review NO; Basophils Absolute Auto 0 /uL (0-100); Basophils Percent Auto 0.9 % (0-2); Eosinophils Absolute Auto 100 /uL (0-450); Eosinophils Percent Auto 1.5 % (2-4); Hematocrit 41.1 % (36-46); Hemoglobin 13.7 g/dL (12.0-16.0); Lymphocytes Absolute Auto 1700 /uL (1100-4500); Lymphocytes Percent Auto 30.7 % (25-40); Mean Corpuscular HGB Conc 33.4 % (30-36); Mean Corpuscular Hemoglobin 32.1 PG (26-34); Monocytes Absolute Auto 600 /uL (0-900); Neutrophils Absolute Auto 3100 /uL (1500-7000); Neutrophils Percent Auto 55.9 % (50-75); Platelet Count 264 X10^3/uL (150-400); Red Blood Cell Count 4.27 X10^6/uL (4.0-5.2); Red Cell Distribution Width 14.7 % (11.6-14.8); White Blood Cell Count 5.6 X10^3/uL (4.5-11.0)
--- NOTE | 2020-04-20 09:59 | ED_ITS ---
HPI - Chest Pain General Chief Complaint: Chest Pain Stated Complaint: TIGHTNESS IN CHEST Time Seen by Provider: 04/20/20 09:30 Source: patient Mode of arrival: Ambulatory Limitations: no limitations History of Present Illness HPI narrative: Patient is a otherwise healthy 69-year-old female here for evaluation of shortness of breath and chest tightness. She states that she was woken up approximately 36 hours ago with a wave of nausea and flushing. She states that at some point after that she became somewhat short of breath which seems to have improved by now but is not completely gone. She does not feel lik e the shortness breath was made worse or improved by movement or walking or sitting she also describes some chest tightness that also has improved since the onset and also did not improve or worsen with movement or palpation. She states that in general she feels better than when she did when the symptoms started but they were not completely resolved. She denies any other associated symptoms. She came to the emergency department today seeking a coronavirus test. Related Data Home Medications Medication Instructions Recorded Confirmed Premarin 0.325 mg PO DAILY 06/03/19 06/03/19 Previous Rx's Medication Instructions Recorded oxycodone 5 mg PO Q4HR #40 tab 06/04/19 Allergies Allergy/AdvReac Type Severity Reaction Status Date / Time No Known Drug Allergies Allergy Verified 06/03/19 07:01 Review of Systems Constitutional Constitutional: Denies chills, Denies fever(s) and Denies malaise Eyes Eyes: Denies change in vision ENT Ears, Nose, Mouth, and Throat: Denies sore throat Cardiovascular Cardiovascular: Reports chest pain (Chest pressure) and Reports dyspnea Respiratory Respiratory: Reports dyspnea Gastrointestinal Gastrointestinal: Denies abdominal pain, Denies nausea and Denies vomiting Genitourinary Genitourinary: Denies dysuria Genitourinary: Denies dysuria Musculoskeletal Musculoskeletal: Denies arthralgias and Denies myalgias Integumentary/Breasts Skin/Breast: Denies rash Neurologic Neurologic: Denies behavioral changes Psychiatric Psychiatric: Denies behavioral changes Hematologic/Lymphatic Hematologic/Lymphatic: Denies easy bleeding and Denies easy bruising Allergic/Immunologic Allergic/Immunologic: Denies urticaria Patient History Medical History Breast cancer, left (Acute ~1989) Easy bruisability (Acute) Headache, migraine (Acute) Osteoarthritis (Acute) Osteopenia (Acute) Surgical History (Updated 05/22/19 @ 10:26 by Christy Ramos RN) H/O: hysterectomy (Acute ~1976) History of colonoscopy (Acute ~2008) History of lumpectomy of left breast (Acute ~1989) Hx of augmentation mammoplasty (Acute ~2008) Hx of LASIK (Acute) Hx of toe surgery (Acute) Hx of tonsillectomy (Acute) Status post Mohs surgery (Acute) Social History household members: spouse Smoking Status: Former smoker alcohol intake: current Smoking Status: Former smoker alcohol intake frequency: 0-2 drinks per day Substance Use Type: marijuana Exam Initial Vital Signs Initial Vital Signs: Vital Signs Pulse Rate 67 04/20/20 09:28 Pulse Oximetry 98 04/20/20 09:28 Const General: cooperative, comfortable and well developed Limitations: mental status not altered HENMT Head: normal to inspection and normocephalic Resp Effort & Inspection: normal respiratory effort Auscultation: clear to auscultation bilaterally Cardio Rate: regular rate Rhythm: regular rhythm GI Inspection: non-distended Palpation: soft Skin Lesions: no lesions Rashes: no rashes Neuro General: patient alert and patient awake Cognition: normal cognition Speech: speech normal Sensory Exam: no sensory deficits noted Extrem General: normal to inspection and capillary refill normal Psych Appearance: grossly normal and well kempt Scores GCS Mia coma scale eye opening: Spontaneous [place] coma scale verbal response: Orientated [place] coma scale motor response: Obey commands [place] coma scale total score: 15 HEART Score Heart Score history: Slightly Suspicious Heart Score EKG: Normal Heart Score Age: > or = 65 years old Heart Score risk factors: No known risk factors Heart Score troponin: < or = to normal limit Heart Score Total: 2 Course Orders Ordered: ED Orders 04/20/20 09:34 Complete Blood Count AUTO DIFF Stat Comprehensive Metabolic Panel Stat Lipase Stat Partial Thromboplastin Time Stat Prothrombin Time INR Stat Troponin & CK Cardiac Panel Stat 04/20/20 09:36 XR chest 1V Stat 04/20/20 10:25 COVID19 Stat Vital Signs Vital signs: Vital Signs - 8 hr 04/20/20 09:28 04/20/20 09:29 11/09/20 09:30 Temperature 98.4 F Pulse Rate 67 71 67 Respiratory Rate 15 Blood Pressure 185/83 H 185/83 H Pulse Oximetry 98 98 98 04/20/20 10:00 Temperature Pulse Rate 58 L Respiratory Rate 18 Blood Pressure Pulse Oximetry 97 MDM - Chest Pain Lab Data Attestation: I reviewed the patient's lab results. Result diagrams: 04/20/20 09:34 04/20/20 09:34 Labs: Lab Results 04/20/20 04/20/20 04/20/20 Range/Units 09:34 09:34 09:34 WBC 5.6 (4.5-11.0) X10^3/uL RBC 4.27 (4.0-5.2) X10^6/uL Hgb 13.7 (12.0-16.0) g/dL Hct 41.1 (36-46) % MCV 96.0 (80-100) fL MCH 32.1 (26-34) PG MCHC 33.4 (30-36) % RDW 14.7 (11.6-14.8) % Plt Count 264 (150-400) X10^3/uL Neut % (Auto) 55.9 (50-75) % Lymph % (Auto) 30.7 (25-40) % Ross % (Auto) 11.0 (3-14) % Eos % (Auto) 1.5 L (2-4) % Baso % (Auto) 0.9 (0-2) % Neut # (Auto) 3100 (0682-6771) /uL Lymph # (Auto) 1700 (4535-7653) /uL Ross # (Auto) 600 (0-900) /uL Eos # (Auto) 100 (0-450) /uL Baso # (Auto) 0 (0-100) /uL PT 11.0 (10.1-12.7) SECONDS INR 1.0 (0.9-1.3) APTT 33 (26.4-36.2) SECONDS Sodium 130 L (137-145) mmol/L Potassium 3.6 (3.4-5.1) mmol/L Chloride 98 (98-107) mmol/L Carbon Dioxide 29 (22-32) mmol/L BUN 4 L (7-17) mg/dL Creatinine 0.54 (0.52-1.04) mg/dL Estimated GFR > 60.0 (>60) mL/min BUN/Creatinine Ratio 7.4 (6-22) Glucose 117 H (80-110) mg/dL Calcium 9.2 (8.4-10.2) mg/dL Total Bilirubin 0.5 (0.2-1.3) mg/dL AST 27 (14-36) IU/L ALT 15 (<35) IU/L Alkaline Phosphatase 55 (38-126) U/L Total Creatine Kinase 83 (30-135) U/L CK-MB (CK-2) TNP CK-MB (CK-2) Rel Index TNP Troponin I < 0.012 (0.01-0.034) ng/mL Total Protein 7.4 (6.3-8.2) g/dL Albumin 4.4 (3.5-5.0) g/dL Globulin 3.0 (1.7-4.1) g/dL Albumin/Globulin Ratio 1.5 (1.0-2.8) Lipase 57 (23-300) U/L COVID-19 PCR (Negative) 04/20/20 Range/Units 10:25 WBC (4.5-11.0) X10^3/uL RBC (4.0-5.2) X10^6/uL Hgb (12.0-16.0) g/dL Hct (36-46) % MCV (80-100) fL MCH (26-34) PG MCHC (30-36) % RDW (11.6-14.8) % Plt Count (150-400) X10^3/uL Neut % (Auto) (50-75) % Lymph % (Auto) (25-40) % Ross % (Auto) (3-14) % Eos % (Auto) (2-4) % Baso % (Auto) (0-2) % Neut # (Auto) (7216-9169) /uL Lymph # (Auto) (8081-6267) /uL Ross # (Auto) (0-900) /uL Eos # (Auto) (0-450) /uL Baso # (Auto) (0-100) /uL PT (10.1-12.7) SECONDS INR (0.9-1.3) APTT (26.4-36.2) SECONDS Sodium (137-145) mmol/L Potassium (3.4-5.1) mmol/L Chloride (98-107) mmol/L Carbon Dioxide (22-32) mmol/L BUN (7-17) mg/dL Creatinine (0.52-1.04) mg/dL Estimated GFR (>60) mL/min BUN/Creatinine Ratio (6-22) Glucose (80-110) mg/dL Calcium (8.4-10.2) mg/dL Total Bilirubin (0.2-1.3) mg/dL AST (14-36) IU/L ALT (<35) IU/L Alkaline Phosphatase (38-126) U/L Total Creatine Kinase (30-135) U/L CK-MB (CK-2) CK-MB (CK-2) Rel Index Troponin I (0.01-0.034) ng/mL Total Protein (6.3-8.2) g/dL Albumin (3.5-5.0) g/dL Globulin (1.7-4.1) g/dL Albumin/Globulin Ratio (1.0-2.8) Lipase (23-300) U/L COVID-19 PCR Negative (Negative) Imaging Data Chest x-ray: Radiologist's Impression: [address] [id number] XRay Report Signed Patient: Ronaldo Johnson [facility]#: [id number] : 8Acct:[id number] Age/Sex: 69 / FDate of Service: 04/20/20 Loc: ED Accession Number: [id number] Procedure: XR chest 1V Ordering Provider: Kwaku Chow D.O. PROCEDURE: XR CHEST 1V INDICATIONS: chest pain TECHNIQUE: One view of the chest was acquired. COMPARISON: [facility], , CHEST 2VW, 10/24/2008, 13:15. [facility], , XR SHOULDER 2+ VIEWS LEFT, 07/17/2019, 14:01. FINDINGS: Surgical changes and devices: None. Lungs and pleura: Lungs are clear. There is left apical scarring. No pleural effusions or pneumothorax. Mediastinum: Mediastinal contours appear normal. Heart size is normal. Bones and chest wall: No suspicious bony lesions. Overlying soft tissues appear unremarkable. Note is made of a left shoulder prosthesis. IMPRESSION: No acute cardiopulmonary disease. Dictated by: Deonte Campuzano M.D. on 04/20/2020 at 10:47 Approved by: Deonte Campuzano M.D. on 04/20/2020 at 10:49 ECG Data Attestation: I personally reviewed and interpreted this ECG as follows: Prior ECG tracings: not available for review Interpretation: Sinus rhythm Ventricular rate is 63 Normal axis Normal QRS Normal QTC No ST T wave changes MDM Narrative Medical decision making narrative: Patient is a low risk heart score, normal EKG, troponin negative greater than 36 hours after the onset of her constant symptoms. Her coronavirus test was negative. I did have a discussion with her regarding her symptoms. Informed her that she needed to talk with her primary doctor about scheduling a stress test. I feel patient can be safely discharged home with follow-up with her primary doctor given the workup here in the ER. She was given return precautions. She expressed understanding and agreement. Discharge Plan Departure Patient Disposition: Home Clinical Impression: Atypical chest pain Instructions: DI for Atypical Chest Pain Activity Restrictions/Additional Instructions: I do recommend that you contact your primary doctor to discuss the indications for a stress test. Continue all of your medications as directed. Return to the emergency department for any new or worsening symptoms Prescriptions: No Action Premarin 0.3 mg Tablet 0.325 mg PO DAILY RF: 0 oxycodone 5 mg Tablet 5 mg PO Q4HR Qty: 40 RF: 0 Referrals: Law Todd MD [Primary Care Provider] -
[2020-04-20 10:00] VITALS: PULSE 58; RESP 18; O2SAT 97
[2020-04-20 10:00] LABS: PTT Partial Thromboplastin Tim 33 SECONDS (26.4-36.2)
[2020-04-20 10:02] LABS: Alanine Aminotransferase 15 IU/L (<35); Albumin 4.4 g/dL (3.5-5.0); Albumin Globulin Ratio 1.5 (1.0-2.8); Alkaline Phosphatase 55 U/L (38-126); Aspartate Aminotransferase 27 IU/L (14-36); BUN Creatinine Ratio 7.4 (6-22); Bilirubin Total 0.5 mg/dL (0.2-1.3); Blood Urea Nitrogen 4 mg/dL (7-17); Calcium 9.2 mg/dL (8.4-10.2); Carbon Dioxide 29 mmol/L (22-32); Chloride 98 mmol/L (98-107); Creatine Kinase 83 U/L (30-135); Estimated Glomerular Filt Rate > 60.0 mL/min (>60); Glucose 117 mg/dL (80-110); HEMOLYSIS < 15 (0-50); Lipase 57 U/L (23-300); Potassium 3.6 mmol/L (3.4-5.1); Sodium 130 mmol/L (137-145); Total Protein 7.4 g/dL (6.3-8.2)
[2020-04-20 10:14] LABS: Troponin I < 0.012 ng/mL (0.01-0.034)
[2020-04-20 10:33] VITALS: PULSE 54; O2SAT 95
[2020-04-20 10:57] LABS: COVID19 -Nasal RAPID Negative (Negative)
[2020-04-20 11:00] VITALS: BP 122/82; PULSE 55; RESP 21; O2SAT 99
== END 2020-04-20 11:24 | disposition home or self-care (01) ==
PROVIDERS: Emergency Provider Emergency Medicine; PCP Internal Medicine
DX: R07.89 Other chest pain (principal); R06.02 Shortness of breath; R11.0 Nausea
CPT/HCPCS: 36415; 71045; 80053; 82550; 83690; 84484; 85025; 85610; 85730; 87635; 93005; 99284

== ENCOUNTER → 2020-07-09 10:04 | Outpatient (CLI) | payer MEDICARE, SELFPAY ==
[2019-06-03 11:08] VITALS: BMI 19.8
--- NOTE | 2020-07-09 | DI.MG.S_ITS ---
BILATERAL DIGITAL SCREENING MAMMOGRAM 3D/2D WITH CAD POST LUMPECTOMY WITH AUGMENTATION: 07/09/2020 CLINICAL: Routine screening. Personal history of left breast cancer. Family history of breast cancer. Comparison is made to exams dated: 11/17/2016 mammogram, 01/14/2016 mammogram - outside location, and 12/02/2014 mammogram - [facility]. The tissue of both breasts is heterogeneously dense. This may lower the sensitivity of mammography. Current study was also evaluated with a Computer Aided Detection (CAD) system. Right silicone implant is intact. Left silicone implant has an outer wall rupture. No significant masses, calcifications, or other findings are seen in either breast. IMPRESSION: BENIGN There is no mammographic evidence of malignancy. A 1 year screening mammogram is recommended. This exam was interpreted at Station ID: [id number]. NOTE: For mammograms, a report in lay terms will be sent to the patient. Approximately 15% of breast malignancies will not be visualized mammographically. In the management of a palpable breast mass, a negative mammogram must not discourage biopsy of a clinically suspicious lesion. Electronically Signed By: Moses sharma/clary:07/09/2020 12:27:17 letter sent: Normal Exam ACR BI-RADS Category 2: Benign Finding(s) 3342F
== END ==
PROVIDERS: PCP Internal Medicine; Referring Provider Internal Medicine; Visit Provider Internal Medicine
DX: Z12.31 Encounter for screening mammogram for malignant neoplasm of breast (principal); Z85.3 Personal history of malignant neoplasm of breast; Z80.3 Family history of malignant neoplasm of breast
CPT/HCPCS: 77063; 77067

== ENCOUNTER → 2021-02-23 07:59 | Outpatient (CLI) | payer MEDICARE, SELFPAY ==
[2019-06-03 11:08] VITALS: BMI 19.8
--- NOTE | 2021-02-23 08:35 | DI.ECHO.S_ITS ---
Reason For Study: THORACIC AORTIC ANEURYSM : :Ordering Physician: RUPINDER, : :FIFI Performed By: Paris Hanna : :Referring: FIFI BUCIO : + + Interpretation Summary Left ventricular systolic function is normal with an estimated ejection fraction of 60 to 65% without any focal wall motion abnormality. Left ventricular size and wall thickness appear normal with probable normal diastolic function and normal filling pressures. Left ventricular strain is borderline at -19.9% (normal being more negative than -20%), and is down from -22.6% on the previous study. Otherwise, there has been no significant change from the previous exam. The right ventricle appears normal. Right ventricular systolic pressure is estimated at 24 mmHg with a CVP of 3 mmHg, and is unchanged from the previous study. Both atria are normal in size and unchanged from the previous exam. There is mild to moderate tricuspid regurgitation which is slightly less prominent compared to the previous study. There is mild to moderate aortic regurgitation that appears unchanged from the previous exam. The ascending aorta is moderately enlarged, measuring 4.4 cm . It measured 4.3 cm in 12/2019. Procedure: A two-dimensional transthoracic echocardiogram with color flow and Doppler was performed. The study quality was technically adequate. Comparison is made with the echocardiogram of 12/24/2019. The patient was in sinus rhythm with heart rates between 58-65 bpm during the exam. Left Ventricle: The left ventricle appears normal in size, wall thickness, and systolic function without any focal wall motion abnormalities. The ejection fraction is estimated to be 60-65%. Left ventricular global longitudinal strain average is borderline decreased at -19.9%. Diastolic parameters suggest probable normal left ventricular diastolic function and normal filling pressures. There has been no significant change since the previous study. Right Ventricle: The right ventricle is normal in size and function. This is unchanged compared to the previous study. Atria: Both atria are normal in size. This is unchanged compared to the previous study. There is no Doppler evidence for an interatrial shunt. Mitral Valve: The mitral valve is normal in structure and function. There is trace mitral regurgitation. This is unchanged compared to the previous study. Aortic Valve: The aortic valve is trileaflet. The aortic valve is slightly calcified. The aortic valve opens well. There is no aortic valve stenosis. There is mild to moderate aortic regurgitation. This is unchanged compared to the previous study. Tricuspid Valve: The tricuspid valve is normal in structure and function. There is mild to moderate tricuspid regurgitation. This is slightly less prominent compared to the previous study. The right ventricular systolic pressure is estimated to be at least 24 mmHg based on an estimated right atrial pressure of 3 mm Hg. This is unchanged compared to the previous study. Pulmonic Valve: The pulmonic valve is not well visualized. There is no pulmonic valvular regurgitation. Great Vessels: The aortic root is normal size. The ascending aorta is moderately enlarged. This is unchanged compared to the previous study. The IVC is of normal diameter and collapses greater than 50% with a sniff. This suggests a low right atrial pressure of 3 mm Hg. Pericardium/ Pleura There is no pericardial effusion. There is no pleural effusion. MMode/2D Measurements & Calculations LVIDd: 4.6 cm LVOT diam: 2.3 cm LVIDs: 2.9 cm Ao root diam: 3.4 cm FS: 36.3 % asc Aorta Diam: 4.4 cm IVSd: 0.62 cm Ao Arch Diam (Prox Trans): 2.9 cm LVPWd: 0.59 cm LV gutierrez. diameter/BSA (cm/m^2): 2.6 LV sys. diameter/BSA (cm/m^2): 1.6 LA A2 area: 15.3 cm2 RA long axis: 5.0 cm LA A4 area: 12.6 cm2 RA area: 13.5 cm2 LA length (vol): 4.6 cm RA vol: 30.9 ml LA vol: 35.2 ml RA : 17.4 ml/m2 LA vol index: 19.8 ml/m2 IVC diam: 1.1 cm RVD1 (basal): 3.5 cm TAPSE: 2.0 cm Doppler Measurements & Calculations Ao V2 max: 122.8 cm/sec LVOT Max Omer: 96.2 cm/sec Ao V2 mean: 88.9 cm/sec LV V1 max P.7 mmHg Ao max P.0 mmHg LV V1 VTI: 22.6 cm Ao mean P.5 mmHg RUPA(I,D): 3.3 cm2 Ao V2 VTI: 28.1 cm RUPA(V,D): 3.2 cm2 sev ratio: 0.81 RUPA indexed to BSA (cm^2/m^2): 1.9 AI P1/2t: 769.4 msec AI dec slope: 152.7 cm/sec2 MV E max omer: 74.6 cm/sec TR max omer: 228.8 cm/sec MV A max omer: 83.5 cm/sec TR max P.9 mmHg MV E/A: 0.89 PA V2 max: 65.6 cm/sec Med Peak E' Omer: 9.4 cm/sec PA V2 mean: 48.3 cm/sec E/E' med: 7.9 PA mean P.0 mmHg Lat Peak E' Omer: 11.9 cm/sec PA pr(Accel): 27.6 mmHg E/E' lat: 6.3 E/e' average: 7.1 MV dec time: 0.23 sec [facility] 93.7 ml Reading Physician:11:12 AM
== END ==
PROVIDERS: PCP Internal Medicine; Referring Provider Internal Medicine; Visit Provider Internal Medicine
DX: I71.2 Thoracic aortic aneurysm, without rupture (principal); I08.2 Rheumatic disorders of both aortic and tricuspid valves; I77.89 Other specified disorders of arteries and arterioles
CPT/HCPCS: 93306

== ENCOUNTER → 2021-11-26 15:39 | Outpatient (CLI) | payer MEDICARE, SELFPAY ==
[2019-06-03 11:08] VITALS: BMI 19.8
--- NOTE | 2021-11-26 15:45 | DI.RAD.S_ITS ---
PROCEDURE: XR KNEE LT 3V INDICATIONS: LEFT KNEE PAIN TECHNIQUE: 3 views of the knee were acquired. COMPARISON: None. FINDINGS: Bones: No fractures or dislocations. No suspicious bony lesions. Mild tricompartmental knee joint space narrowing with periarticular osteophyte formation. Soft tissues: Small joint effusion. Tricompartmental chondrocalcinosis. IMPRESSION: 1. Mild tricompartmental knee joint degeneration. 2. Chondrocalcinosis. Differential diagnosis includes but is not limited to hemochromatosis, hyperparathyroidism and CPPD. 3. Small joint effusion. Dictated by: Tj Sosa [facility] Interpreted: Moses Mckinley MD on 11/26/2021 at 16:01 Transcribed by: KHURRAM on 11/26/2021 at 16:02 Approved by: Moses Mckinley M.D. on 11/26/2021 at 17:14
== END ==
PROVIDERS: PCP Internal Medicine; Referring Provider Chiropractor; Visit Provider Chiropractor
DX: M17.12 Unilateral primary osteoarthritis, left knee (principal); M11.262 Other chondrocalcinosis, left knee; M25.462 Effusion, left knee; M25.562 Pain in left knee
CPT/HCPCS: 73562

== ENCOUNTER 2022-01-02 09:10 | Emergency (ER) | payer MEDICARE, SELFPAY ==
[2019-06-03 11:08] VITALS: BMI 19.8
[2022-01-02 09:19] VITALS: BP 139/72; PULSE 76; RESP 20; TEMP 36.4; O2SAT 95; BMI 19.3
--- NOTE | 2022-01-02 09:25 | DI.RAD.S_ITS ---
PROCEDURE: XR SHOULDER LT MIN 2V INDICATIONS: dislocation TECHNIQUE: 2 views of the shoulder were acquired. COMPARISON: [facility], CR, XR SHOULDER 2+ VIEWS LEFT, 06/18/2020, 8:46. FINDINGS: Bones: No fractures or dislocations. No suspicious bony lesions. Visualized ribs appear intact. Shoulder arthroplasty hardware is seen, which appears intact. Soft tissues: Atherosclerotic calcification of the aortic arch is noted. The visualized lung demonstrates an unremarkable appearance. IMPRESSION: No dislocation is seen. Intact appearing left shoulder arthroplasty hardware can be seen. Dictated by: Jovani Coy M.D. on 01/02/2022 at 9:04 Approved by: Jovani Coy M.D. on 01/02/2022 at 9:05
--- NOTE | 2022-01-02 10:45 | ED_ITS ---
HPI - Extremity Injury (Upper) General Chief Complaint: Extremity Injury, Upper Stated Complaint: lt shoulder went out 1 week ago Time Seen by Provider: 01/02/22 10:39 Source: patient Mode of arrival: Ambulatory History of Present Illness HPI narrative: Patient is a 71-year-old female with noncontributory medical history presenting today with left shoulder pain and discomfort. She states that it got dislocated last week she was able to put it back in she went to the chiropractor a couple times after that however she still having some pain and limited range of motion. Hurts every time she moves. She has no numbness tingling or weakness. She has been taking Tylenol. No other complaints today. Related Data Home Medications Medication Instructions Recorded Confirmed ascorbic acid (vitamin C) 500 mg 500 mg PO DAILY 12/03/21 12/03/21 tablet cholecalciferol (vitamin D3) 25 100 mcg PO DAILY 12/03/21 12/03/21 mcg/drop (1,000 unit/drop) oral drops magnesium oxide 400 mg PO DAILY 12/03/21 12/03/21 venlafaxine 37.5 mg 37.5 mg PO DAILY 12/03/21 12/03/21 capsule,extended release 24 hr zinc 50 mg tablet 50 mg PO DAILY 12/03/21 12/03/21 Previous Rx's Medication Instructions Recorded sumatriptan succinate 100 mg tablet 100 mg PO .COMPLEX PRN migraine 11/26/21 headache #10 tabs Allergies Allergy/AdvReac Type Severity Reaction Status Date / Time No Known Drug Allergies Allergy Verified 12/03/21 10:21 Review of Systems Review of Systems Narrative: GENERAL: Denies chills,fever HEENT: Denies throat pain RESPIRATORY: Denies dyspnea, cough, wheezing CARDIOVASCULAR: Denies chest pain, palpitations GASTROINTESTINAL: Denies nausea, vomiting MUSCULOSKELETAL: See HPI SKIN: No rash, no laceration, no pruritus NEUROLOGIC: Denies weakness, dizziness, headache, numbness 8 point review of systems is negative except for those stated above and HPI Patient History Medical History Aortic regurgitation Breast cancer, left (~1989) Easy bruisability Generalized anxiety disorder Headache, migraine (~2020) Osteoarthritis Osteopenia Primary osteoarthritis involving multiple joints Restless leg syndrome Surgical History Anesthesia H/O: hysterectomy (~1976) History of colonoscopy (~2008) History of lumpectomy of left breast (~1989) History of shoulder replacement (~2019) Hx of augmentation mammoplasty (~2008) Hx of LASIK Hx of toe surgery Hx of tonsillectomy Status post Mohs surgery Family History Father Alzheimer's disease Mother History of heart disease Stroke Sister History of heart disease Grandfather History of heart disease Social History household members: spouse Smoking Status: Former smoker alcohol intake: current Smoking Status: Former smoker alcohol intake frequency: 0-2 drinks per day Substance Use Type: marijuana Exam Initial Vital Signs Initial Vital Signs: Vital Signs Temperature 97.6 F 01/02/22 09:19 Pulse Rate 76 01/02/22 09:19 Respiratory Rate 20 01/02/22 09:19 Blood Pressure 139/72 01/02/22 09:19 Pulse Oximetry 95 01/02/22 09:19 Oxygen Delivery Method 01/02/22 09:19 GENERAL: Alert pleasant 71-year-old female CARDIOVASCULAR: peripheral pulses in tact, cap refill <2 sec RESPIRATORY: No respiratory distress, speaks in full sentences without difficulty EXTREMITIES: Normal range of motion, no clubbing or edema. Neurovascularly intact Left upper extremity significant decreased active range of motion some passive range of motion sensation over deltoid intact strong distal radial pulse. No gross bony deformities. NEUROLOGICAL: Cranial nerves II through XII grossly intact. Normal gait and speech. SKIN: Warm, dry, no petechiae, no rashes or lesions. Course Orders Ordered: ED Orders 01/02/22 09:25 XR shoulder LT min 2V Stat Vital Signs Vital signs: Vital Signs - 8 hr 01/02/22 09:19 01/02/22 11:05 Temperature 97.6 F Pulse Rate 76 75 Respiratory Rate 20 20 Blood Pressure 139/72 130/71 Pulse Oximetry 95 100 Oxygen Delivery Method Room Air Room Air MDM - Extremity Injury (Upper) Imaging Data Extremity x-ray #1: Radiologist's Impression: ?Ronaldo Johnson MR#: [id number] : 1950 Acct:[id number] Age/Sex: 71 / F Date of Service: 01/02/22 Loc: ED Accession Number: [id number] ?? Procedure: XR shoulder LT min 2V Ordering Provider: Mecca Paul D.O. PROCEDURE:? XR SHOULDER LT MIN 2V ? INDICATIONS:? dislocation ? TECHNIQUE:? 2 views of the shoulder were acquired.? ? COMPARISON:? [facility], CR, XR SHOULDER 2+ VIEWS LEFT, 06/18/2020, 8:46. ? FINDINGS:? ? Bones:? No fractures or dislocations.? No suspicious bony lesions.? Visualized ribs appear intact.? ? Shoulder arthroplasty hardware is seen, which appears intact. ? Soft tissues:? Atherosclerotic calcification of the aortic arch is noted.? The visualized lung demonstrates an unremarkable appearance. ? ? IMPRESSION:? No dislocation is seen. ? Intact appearing left shoulder arthroplasty hardware can be seen. ? ? Dictated by: Jovani Coy M.D. on 01/02/2022 at 9:04 ? ? Approved by: Jovani Coy M.D. on 01/02/2022 at 9:05 ? MDM Narrative Medical decision making narrative: Patient had previous left shoulder surgery. Dislocation probable last week. Still continues to have decreased range of motion x-ray is negative. May require outpatient MRI if able. At this time recommend sling supportive care and pain control Discharge Plan Departure Patient Disposition: Home Clinical Impression: Shoulder pain, left Instructions: DI for Shoulder Pain Activity Restrictions/Additional Instructions: *You have been diagnosed with left shoulder pain *What to do: At this time I recommend wearing sling as needed throughout the day be sure to take out a couple times a day to move it. May need outpatient MRI if you are able to do so after this surgery. *Continue to take medications as directed Tylenol 1000 mg every 6 hours if needed for [id number] pain *Follow up with your primary care provider in 2-3 days or call [phone] *Return to ER if you should have increasing pain numbness tingling weakness or any new, worsening or concerning symptoms Prescriptions: No Action sumatriptan succinate 100 mg tablet 100 mg PO .COMPLEX PRN (Reason: migraine headache) Qty: 10 0RF Rx Instructions: Take One-Half to one Tablet by mouth at onset of headache. Okay to repeat 2 hours later if needed. venlafaxine 37.5 mg capsule,extended release 24hr 37.5 mg PO DAILY zinc 50 mg tablet 50 mg PO DAILY magnesium oxide 400 mg magnesium tablet 400 mg PO DAILY ascorbic acid (vitamin C) 500 mg tablet 500 mg PO DAILY cholecalciferol (vitamin D3) 25 mcg/drop ( 1,000 unit/drop) drops 100 mcg PO DAILY Referrals: Law Todd MD [Primary Care Provider] - Visit Report Forms: Patient Portal/API
[2022-01-02 11:05] VITALS: BP 130/71; PULSE 75; RESP 20; O2SAT 100
== END 2022-01-02 11:06 | disposition home or self-care (01) ==
PROVIDERS: Emergency Provider Emergency Medicine; PCP Internal Medicine
DX: M25.512 Pain in left shoulder (principal)
CPT/HCPCS: 73030; 99283

== ENCOUNTER → 2022-03-04 12:04 | Outpatient (CLI) | payer MEDICARE, SELFPAY ==
[2022-01-05 11:08] VITALS: BMI 19.8
[2022-03-04 13:30] LABS: Hematocrit 38.4 % (36-46); Hemoglobin 13.2 g/dL (12.0-16.0); Mean Corpuscular HGB Conc 34.4 % (30-36); Mean Corpuscular Hemoglobin 31.2 PG (26-34); Mean Corpuscular Volume 90.7 fL (80-100); Platelet Count 285 X10^3/uL (150-400); Red Blood Cell Count 4.24 X10^6/uL (4.0-5.2); Red Cell Distribution Width 15.4 % (11.6-14.8)
[2022-03-04 14:19] LABS: Alanine Aminotransferase 20 IU/L (<35); Albumin 4.6 g/dL (3.5-5.0); Albumin Globulin Ratio 1.7 (1.0-2.8); Alkaline Phosphatase 55 U/L (38-126); Aspartate Aminotransferase 27 IU/L (14-36); BUN Creatinine Ratio 14.3 (6-22); Bilirubin Total 0.4 mg/dL (0.2-1.3); Blood Urea Nitrogen 7 mg/dL (7-17); Calcium 9.3 mg/dL (8.4-10.2); Carbon Dioxide 28 mmol/L (22-32); Chloride 93 mmol/L (98-107); Estimated Glomerular Filt Rate > 60 mL/min (>60); Globulin 2.7 g/dL (1.7-4.1); Glucose 88 mg/dL (80-110); HDL Cholesterol 92 mg/dL (40-60); HEMOLYSIS < 15 (0-50); Potassium 4.3 mmol/L (3.4-5.1); Sodium 130 mmol/L (137-145); Total Protein 7.3 g/dL (6.3-8.2); Triglycerides 122 mg/dL (35-150)
[2022-03-04 14:28] LABS: Cholesterol 365 mg/dL (140-199); LDL Cholesterol Calculated 249 mg/dL (<100)
[2022-03-04 14:31] LABS: TSH w/ Reflex to FT4 1.76 uIU/mL (0.47-4.68)
[2022-03-04 14:37] LABS: Vitamin D 25 Hydroxy (D3) 45.6 ng/mL (30.0-100.0)
== END ==
PROVIDERS: PCP Internal Medicine; Referring Provider Internal Medicine; Visit Provider Internal Medicine
DX: E78.2 Mixed hyperlipidemia (principal); M85.80 Other specified disorders of bone density and structure, unspecified site; I35.1 Nonrheumatic aortic (valve) insufficiency
CPT/HCPCS: 36415; 80053; 80061; 82306; 84443; 85027

== ENCOUNTER → 2022-03-09 14:42 | Outpatient (CLI) | payer MEDICARE, SELFPAY ==
[2022-01-05 11:08] VITALS: BMI 19.8
== END ==
PROVIDERS: PCP Internal Medicine; Referring Provider Internal Medicine; Visit Provider Internal Medicine
DX: Z78.0 Asymptomatic menopausal state (principal); Z13.820 Encounter for screening for osteoporosis; M81.0 Age-related osteoporosis without current pathological fracture; Z90.710 Acquired absence of both cervix and uterus
CPT/HCPCS: 77080

== ENCOUNTER → 2023-03-09 10:48 | Outpatient (CLI) | payer MEDICARE, SELFPAY ==
[2022-01-05 11:08] VITALS: BMI 19.8
[2023-03-09 12:37] LABS: Alanine Aminotransferase 26 IU/L (<35); Albumin 4.4 g/dL (3.5-5.0); Albumin Globulin Ratio 1.6 (1.0-2.8); Alkaline Phosphatase 66 U/L (38-126); Aspartate Aminotransferase 27 IU/L (14-36); BUN Creatinine Ratio 18.5 (6-22); Bilirubin Total 0.6 mg/dL (0.2-1.3); Blood Urea Nitrogen 10 mg/dL (7-17); Calcium 9.9 mg/dL (8.4-10.2); Carbon Dioxide 31 mmol/L (22-32); Chloride 98 mmol/L (98-107); Estimated Glomerular Filt Rate > 60 mL/min (>60); Globulin 2.8 g/dL (1.7-4.1); Glucose 88 mg/dL (80-110); HDL Cholesterol 96 mg/dL (40-60); HEMOLYSIS < 15 (0-50); Potassium 4.4 mmol/L (3.4-5.1); Sodium 133 mmol/L (137-145); Total Protein 7.2 g/dL (6.3-8.2); Triglycerides 92 mg/dL (35-150)
[2023-03-09 12:45] LABS: Cholesterol 367 mg/dL (140-199); LDL Cholesterol Calculated 253 mg/dL (<100)
== END ==
PROVIDERS: PCP Internal Medicine; Referring Provider Internal Medicine; Visit Provider Internal Medicine
DX: E78.2 Mixed hyperlipidemia (principal); M81.0 Age-related osteoporosis without current pathological fracture
CPT/HCPCS: 36415; 80053; 80061

== ENCOUNTER → 2023-04-10 15:26 | Outpatient (CLI) | payer MEDICARE, SELFPAY ==
[2022-01-05 11:08] VITALS: BMI 19.8
[2023-04-12 15:52] LABS: Fecal Immunochemical Test Negative (Negative)
== END ==
PROVIDERS: PCP Internal Medicine; Referring Provider Internal Medicine; Visit Provider Internal Medicine
DX: Z12.11 Encounter for screening for malignant neoplasm of colon (principal)
CPT/HCPCS: 82274

== ENCOUNTER → 2024-04-11 10:35 | Outpatient (CLI) | payer MEDICARE, SELFPAY ==
[2022-01-05 11:08] VITALS: BMI 19.8
[2024-04-11 13:11] LABS: Aspartate Aminotransferase 30 IU/L (14-36); BUN Creatinine Ratio 17.5 (6-22); Blood Urea Nitrogen 10 mg/dL (7-17); Calcium 9.8 mg/dL (8.4-10.2); Carbon Dioxide 26 mmol/L (22-32); Chloride 99 mmol/L (98-107); Cholesterol 179 mg/dL (140-199); Estimated Glomerular Filt Rate > 60 mL/min (>60); Glucose 86 mg/dL (80-110); HDL Cholesterol 94 mg/dL (40-60); HEMOLYSIS < 15 (0-50); LDL Cholesterol Calculated 71 mg/dL (<100); Potassium 4.9 mmol/L (3.4-5.1); Sodium 134 mmol/L (137-145); Triglycerides 69 mg/dL (35-150)
== END ==
PROVIDERS: PCP Internal Medicine; Referring Provider Internal Medicine; Visit Provider Internal Medicine
DX: E78.2 Mixed hyperlipidemia (principal); I35.1 Nonrheumatic aortic (valve) insufficiency; F41.1 Generalized anxiety disorder; M15.9 Polyosteoarthritis, unspecified; M81.0 Age-related osteoporosis without current pathological fracture; Z85.3 Personal history of malignant neoplasm of breast
CPT/HCPCS: 36415; 80048; 80061; 84450

== ENCOUNTER → 2024-04-12 10:51 | Outpatient (CLI) | payer MEDICARE, SELFPAY ==
[2022-01-05 11:08] VITALS: BMI 19.8
[2024-04-15 13:36] LABS: Fecal Immunochemical Test Negative (Negative)
== END ==
PROVIDERS: PCP Internal Medicine; Referring Provider Internal Medicine; Visit Provider Internal Medicine
DX: Z12.11 Encounter for screening for malignant neoplasm of colon (principal)
CPT/HCPCS: 82274

== ENCOUNTER → 2024-04-16 11:05 | Outpatient (CLI) | payer MEDICARE, SELFPAY ==
[2022-01-05 11:08] VITALS: BMI 19.8
--- NOTE | 2024-04-16 11:07 | DI.RAD.S_ITS ---
PROCEDURE: XR DEXA AXIAL SKELETON INDICATIONS: osteoperosis COMPARISON: [facility], CR, XR DEXA AXIAL SKELETON, 03/09/2022, 15:11. FINDINGS: Lumbar Spine: Bone mineral density 0.838 g/cm2, T score -2.2, prior study performed on a different machine. Therefore it is not possible to compare for interval change. Left Hip: Bone mineral density 0.607 g/cm2, T score -2.7, prior study performed on a different machine. Therefore it is not possible to compare for interval change Left Femoral Neck: Bone mineral density 0.536 g/cm2, T score -2.8, prior study performed on a different machine. Therefore it is not possible to compare for interval change. Right Hip: Bone mineral density 0.683 g/cm2, T score -2.1, prior study performed on a different machine. Therefore it is not possible to compare for interval change. Right Femoral Neck: Bone mineral density 0.638 g/cm2, T score -1.9, prior study performed on a different machine. Therefore it is not possible to compare for interval change. Fracture Risk Calculation (when applicable): Not valid in osteoporotic patients. Only valid in patients with osteopenia (T score greater or equal to -1.0 to: NORMAL) (T score from -1.1 to -2.4: OSTEOPENIA) (T score less than or equal to -2.5: OSTEOPOROSIS) IMPRESSION: 1. By WHO (World Health Organization) criteria, this patient has osteoporosis 2. Fracture Risk Calculation is not utilized in patients with osteoporosis 3. Medical evaluation for secondary causes of low bone density should be considered along with maximizing calcium and vitamin D nutrition. Due to this patient's associated increased 10 year fracture risk, osteoporosis therapy may be indicated. Recommend clinical correlation. Consider repeat DEXA scan in 1 to 2 years. Follow-up guidelines as follows: Osteoporosis: Consider a repeat DEXA and Vertebral Fracture Assessment (VFA) exam in 2 years or sooner if medically necessary, to reassess this patient's status. Osteopenia: Consider a repeat DEXA in 2-3 years to reassess this patient's status, or if there is a new clinical indication. Normal: Consider a repeat DEXA in 5 years or sooner, or if there is a new clinical indication. All treatment decisions require clinical judgment and consideration of individual patient factors, including patient preferences, comorbidities, previous drug use, risk factors not captured in the FRAX model (e.g., frailty, falls, vitamin D deficiency, increased bone turnover, interval significant decline in bone density ) and possible under- or over-estimation of fracture risk by FRAX. In addition, the NOF Guide recommends that FDA-approved medical therapies be considered in postmenopausal women and men age >= 50 years with a: * Hip or vertebral (clinical or morphometric) fracture * T-score of <=-2.5 at the spine or hip * Ten-year fracture probability by FRAX of >= 3% for hip fracture or >=20% for major osteoporotic fracture. People with diagnosed cases of osteoporosis or at high risk for fracture should have regular bone mineral density tests. For patients eligible for Medicare, routine testing is allowed once every 2 years. The testing frequency can be increased to one year for patients who have rapidly progressing disease, those who are receiving or discontinuing medical therapy to restore bone mass, or have additional risk factors. Dictated by: Luan Malloy M.D. on 04/16/2024 at 15:52 Approved by: Luan Malloy M.D. on 04/16/2024 at 15:56
== END ==
LOC: RAD 11:06
PROVIDERS: PCP Internal Medicine; Referring Provider Internal Medicine; Visit Provider Internal Medicine
DX: M81.0 Age-related osteoporosis without current pathological fracture (principal)
CPT/HCPCS: 77080

== ENCOUNTER → 2025-04-15 08:42 | Outpatient (CLI) | payer MEDICARE, SELFPAY ==
[2022-01-05 11:08] VITALS: BMI 19.8
[2025-04-15 10:02] LABS: Hematocrit 39.6 % (36-46); Hemoglobin 13.6 g/dL (12.0-16.0); Mean Corpuscular HGB Conc 34.3 % (30-36); Mean Corpuscular Hemoglobin 31.0 PG (26-34); Mean Corpuscular Volume 90.3 fL (80-100); Platelet Count 302 X10^3/uL (150-400)
[2025-04-15 10:25] LABS: Alanine Aminotransferase 18 IU/L (<35); Albumin 4.6 g/dL (3.5-5.0); Albumin Globulin Ratio 1.5 (1.0-2.8); Alkaline Phosphatase 53 U/L (38-126); Blood Urea Nitrogen 9 mg/dL (7-17); Calcium 9.5 mg/dL (8.4-10.2); Carbon Dioxide 26 mmol/L (22-32); Chloride 94 mmol/L (98-107); Cholesterol 272 mg/dL (140-199); Estimated Glomerular Filt Rate > 60 mL/min (>60); Globulin 3.0 g/dL (1.7-4.1); Glucose 84 mg/dL (70-99); HDL Cholesterol 93 mg/dL (40-60); HEMOLYSIS < 15 (0-50); Potassium 4.9 mmol/L (3.4-5.1); Sodium 128 mmol/L (137-145); Total Protein 7.6 g/dL (6.3-8.2); Triglycerides 91 mg/dL (35-150)
[2025-04-15 10:51] LABS: TSH w/ Reflex to FT4 1.21 uIU/mL (0.47-4.68)
== END ==
PROVIDERS: PCP Internal Medicine; Referring Provider Internal Medicine; Visit Provider Internal Medicine
DX: E78.2 Mixed hyperlipidemia (principal); I35.1 Nonrheumatic aortic (valve) insufficiency; R53.83 Other fatigue
CPT/HCPCS: 36415; 80053; 80061; 84443; 85027

== ENCOUNTER → 2025-04-17 09:07 | Outpatient (CLI) | payer MEDICARE, SELFPAY ==
[2022-01-05 11:08] VITALS: BMI 19.8
== END ==
PROVIDERS: PCP Internal Medicine; Referring Provider Internal Medicine; Visit Provider Internal Medicine
DX: Z12.11 Encounter for screening for malignant neoplasm of colon (principal)
CPT/HCPCS: 82274